=== PATIENT | male | born 1945 | race Caucasian/White ===

== ENCOUNTER 2017-04-29 10:59 | Observation (INO) | payer OTHER ==
[2017-04-29] VITALS (8 sets, daily range): BP systolic 128–166; BP diastolic 71–88; PULSE 55–60; RESP 18; TEMP 96–98; O2SAT 97–100
[~2017-04-29] VITALS: Ht 182.9 cm; Wt 103.8 kg
[~2017-04-29 10:59] MED LIST: ASPI1TAB7 PO; CARDITONE PO; CHOLEAST PO; CO Q200C PO; ELDES PO; GARL500C2 PO; GLUCTAB6 PO; HYDR12.56 PO; NATURAL THYROID PO
[2017-04-29] MEDS ORDERED: ASPI-516 CHEW (11:33)
[2017-04-29] MEDS ORDERED: MELA5CAP3 PO (11:33)
[2017-04-29] MEDS ORDERED: NATU65TA PO (11:33)
[2017-04-29] MEDS ORDERED: BIFLEX (11:33)
[2017-04-29] MEDS ORDERED: COQ-100C5 PO (11:33)
[2017-04-29] MEDS ORDERED: HYDR12.57 PO (11:33)
[2017-04-29] MEDS ORDERED: MCTOIL PO (11:33)
[2017-04-29] MEDS ORDERED: SAWCAP2 PO (11:33)
[2017-04-29] MEDS ORDERED: CHRO400T5 PO (11:33)
[2017-04-29] MEDS ORDERED: CARDITONE (11:33)
--- NOTE | 2017-04-29 11:45 | PD ---
HPI Chief Complaint: Chest Pain Time Seen by Provider: 11:22 Travel History International Travel<30 days: No Contact w/Intl Traveler<30days: No Traveled to known affect area: No History of Present Illness HPI 71-year-old male complains of chest pain. Patient states that he had constant chest pain for the past month. Patient states that the pain is across the anterior chest wall pressure. Patient denies any pain radiation. Patient has history of chronic neck pain and does not move. Patient states that the pain occasionally radiates to the left arm. Patient denies any coughing congestion fever chills. Patient denies any nausea or diaphoresis with chest pain. Patient states that the pain is worse with strenuous exertion. Patient denies any history of CAD. Patient has history hypertension. Patient states that his patient has been taking [id number] medication for blood pressure. Patient is on HCTZ. Patient denies history of diabetes, hyperlipidemia. Patient stopped smoking 40 years ago. Patient has family history of heart disease. Patient was seen by [place] physician and Dr. De Leon for chest pain. Patient states that he had an EKG done in the office. Patient was advised to have a stress test. Patient awaiting for stress test. PFSH Past Medical History Arthritis: Yes Cancer: No Cardiovascular Problems: No High Cholesterol: Yes Diabetes: No Endocrine: Yes Genitourinary: No Hepatitis: No Hiatal Hernia: No Hypertension: Yes Immune Disorder: No Musculoskeletal: Yes (ARTHRITIS) Neurologic: No Psychiatric: No Respiratory: Yes (ASTHMA) Thyroid Disease: Yes Influenza Vaccination: Yes Past Surgical History AICD: No Joint Replacement: No Oral Surgery: Yes (T & A) Pacemaker: No Tonsillectomy: Yes Social History Alcohol Use: No Tobacco Use: No Substance Use: No Allergies-Medications (Allergen,Severity, Reaction): Coded Allergies: No Known Allergies (Verified Adverse Reaction, Unknown, 04/29/17) Reported Meds & Prescriptions Reported Meds & Active Scripts Active Reported Aspirin 81 Mg Chew 81 Mg CHEW DAILY Melatonin 5 Mg Capsule 1 Tab PO HS Saw [place] Extract (Saw [place]-Zinc) 160-15 mg Cap 1 Cap PO DAILY [Biflex] Chromium 400 Mcg Tab 1 Mg PO DAILY [Carditone] Coq-10 Tr (Coenzyme Q10 (Ubidecarenone)) 100 Mg Cap 200 Mg PO DAILY Nature-Throid (Thyroid) 65 Mg Tab 65 Mg PO DAILY Mct Oil (Medium Chain Triglycerides) 7.7 Kcal/Ml Oil 1,000 Mg PO DAILY Hydrochlorothiazide 12.5 Mg Cap 12.5 Mg PO DAILY Review of Systems General / Constitutional: No: Fever Eyes: No: Visual changes HENT: No: Headaches Cardiovascular: Positive: Chest Pain or Discomfort Respiratory: No: Shortness of Breath Gastrointestinal: No: Abdominal Pain Genitourinary: No: Dysuria Musculoskeletal: No: Pain Skin: No Rash Neurologic: No: Weakness Psychiatric: No: Depression Endocrine: No: Polydipsia Hematologic/Lymphatic: No: Easy Bruising Physical Exam Narrative GENERAL: Well-nourished, well-developed patient. SKIN: Focused skin assessment warm/dry. HEAD: Normocephalic. EYES: No scleral icterus. No injection or drainage. NECK: Supple, trachea midline. No JVD or lymphadenopathy. CARDIOVASCULAR: Regular rate and rhythm without murmurs, gallops, or rubs. RESPIRATORY: Breath sounds equal bilaterally. No accessory muscle use. GASTROINTESTINAL: Abdomen soft, non-tender, nondistended. MUSCULOSKELETAL: No cyanosis, or edema. BACK: Nontender without obvious deformity. No CVA tenderness. Neurologic exam normal. Data Data Last Documented VS Vital Signs Date Time Temp Pulse Resp B/P (MAP) Pulse Ox O2 Delivery O2 Flow Rate FiO2 04/29/17 11:56 97 Room Air 04/29/17 11:16 97.6 58 18 156/79 (104) Orders Orders Electrocardiogram (04/29/17 11:33) Complete Blood Count With Diff (04/29/17 11:33) Comprehensive Metabolic Panel (04/29/17 11:33) Creatine Kinase (Cpk) (04/29/17 11:33) Troponin I (04/29/17 11:33) Prothrombin Time / Inr (Pt) (04/29/17 11:33) Act Partial Throm Time (Ptt) (04/29/17 11:33) Chest, Single Ap (04/29/17 11:33) Iv Access Insert/Monitor (04/29/17 11:33) Ecg Monitoring (04/29/17 11:33) Oximetry (04/29/17 11:33) Admit Order (Ed Use Only) (04/29/17 12:28) Labs Laboratory Tests Test 04/29/17 11:50 White Blood Count 6.1 TH/MM3 Red Blood Count 5.26 MIL/MM3 Hemoglobin 15.2 GM/DL Hematocrit 44.7 % Mean Corpuscular Volume 85.1 FL Mean Corpuscular Hemoglobin 28.9 PG Mean Corpuscular Hemoglobin Concent 33.9 % Red Cell Distribution Width 13.0 % Platelet Count 279 TH/MM3 Mean Platelet Volume 7.3 FL Neutrophils (%) (Auto) 61.8 % Lymphocytes (%) (Auto) 26.2 % Monocytes (%) (Auto) 8.3 % Eosinophils (%) (Auto) 3.0 % Basophils (%) (Auto) 0.7 % Neutrophils # (Auto) 3.8 TH/MM3 Lymphocytes # (Auto) 1.6 TH/MM3 Monocytes # (Auto) 0.5 TH/MM3 Eosinophils # (Auto) 0.2 TH/MM3 Basophils # (Auto) 0.0 TH/MM3 CBC Comment DIFF FINAL Differential Comment Prothrombin Time 10.2 SEC Prothromb Time International Ratio 1.0 RATIO Activated Partial Thromboplast Time 28.4 SEC Blood Urea Nitrogen 15 MG/DL Creatinine 0.85 MG/DL Random Glucose 85 MG/DL Total Protein 7.2 GM/DL Albumin 3.6 GM/DL Calcium Level 8.2 MG/DL Alkaline Phosphatase 78 U/L Aspartate Amino Transf (AST/SGOT) 13 U/L Alanine Aminotransferase (ALT/SGPT) 20 U/L Total Bilirubin 0.5 MG/DL Sodium Level 138 MEQ/L Potassium Level 4.0 MEQ/L Chloride Level 105 MEQ/L Carbon Dioxide Level 27.9 MEQ/L Anion Gap 5 MEQ/L Estimat Glomerular Filtration Rate 89 ML/MIN Total Creatine Kinase 66 U/L Troponin I LESS THAN 0.02 NG/ML [facility] Medical Decision Making Medical Screen Exam Complete: Yes Emergency Medical Condition: Yes Interpretation(s) EKG shows sinus bradycardia, rate 56, with nonspecific ST-T wave change. 12:18 PM. Chest x-ray shows no acute consolidation. CBC within normal limits. Cardiac enzymes are normal. Differential Diagnosis Differential diagnosis including musculoskeletal, angina, CO, PE, pneumothorax. Narrative Course 71-year-old male with chest pain. Chest pain has been constant for the past month and worse with strenuous exertion. Patient will be admitted to the chest pain center. Diagnosis Primary Impression: Chest pain Qualified Codes: R07.9 - Chest pain, unspecified Admitting Information Admitting Physician Requests: Observation Hari Velazquez MD Apr 29, 2017 11:45
[2017-04-29 12:01] LABS: AUTOMATED NEUTROPHIL # 3.8 TH/MM3 (1.8-7.7); BASOPHIL % 0.7 % (0.0-2.0); EOSINOPHIL # 0.2 TH/MM3 (0-0.4); HEMATOCRIT 44.7 % (39.0-51.0); HEMOGLOBIN 15.2 GM/DL (13.0-17.0); LYMPH % 26.2 % (9.0-44.0); LYMPHOCYTE # 1.6 TH/MM3 (1.0-4.8); MEAN CELL VOLUME 85.1 FL (80.0-100.0); MEAN CORPUSCULAR HEMOGLOBIN 28.9 PG (27.0-34.0); MEAN CORPUSCULAR HGB CONC 33.9 % (32.0-36.0); MEAN PLATELET VOLUME 7.3 FL (7.0-11.0); MONO % 8.3 % (0.0-8.0); MONOCYTE # 0.5 TH/MM3 (0-0.9); NEUT % 61.8 % (16.0-70.0); PLATELET COUNT 279 TH/MM3 (150-450); RED BLOOD COUNT 5.26 MIL/MM3 (4.50-5.90); WHITE BLOOD COUNT 6.1 TH/MM3 (4.0-11.0)
[2017-04-29 12:05] LABS: CHLORIDE 105 MEQ/L (98-107); SODIUM (NA) 138 MEQ/L (136-145)
[2017-04-29 12:08] LABS: ALBUMIN 3.6 GM/DL (3.4-5.0); BICARBONATE 27.9 MEQ/L (21.0-32.0); CALCIUM 8.2 MG/DL (8.5-10.1)
--- NOTE | 2017-04-29 12:08 | RADRPT ---
EXAM DATE/TIME: 04/29/2017 11:42 [facility] COMPARISON: No previous studies available for comparison. INDICATIONS : Chest pain MEDICAL HISTORY : Hypertension. Hypercholesterolemia. Asthma SURGICAL HISTORY : None. ENCOUNTER: Initial ACUITY: 1 day PAIN SCORE: 10 LOCATION: Bilateral chest FINDINGS: A single view of the chest demonstrates the lungs to be symmetrically aerated without evidence of mas s, infiltrate or effusion. The cardiomediastinal contours are unremarkable. Osseous structures are intact. CONCLUSION: No acute disease. Ron Hernandez MD on April 29, 2017 at 12:06 Board Certified Radiologist. This report was verified electronically.
[2017-04-29 12:09] LABS: BLOOD UREA NITROGEN 15 MG/DL (7-18); GLUCOSE,RANDOM 85 MG/DL (74-106)
[2017-04-29 12:11] LABS: PROTHROMBIN TIME - PATIENT 10.2 SEC (9.8-11.6)
[2017-04-29 12:12] LABS: ALT (GPT) 20 U/L (12-78); AST (GOT) 13 U/L (15-37); CREATININE 0.85 MG/DL (0.60-1.30); GLOMERULAR FILTRATION RATE 89 ML/MIN (>89)
[2017-04-29 12:13] LABS: TOTAL BILIRUBIN ADULT 0.5 MG/DL (0.2-1.0); TOTAL PROTEIN 7.2 GM/DL (6.4-8.2)
[2017-04-29 12:14] LABS: ALKALINE PHOSPHATASE 78 U/L (45-117)
[2017-04-29 12:16] LABS: TROPONIN I LESS THAN 0.02 NG/ML (0.02-0.05)
[2017-04-29] MEDS ORDERED: REGADENOSON INJ 0.4 MG/5 ML SYR IV ONE (12:31)
[2017-04-29] MEDS ORDERED: SODIUM CHLOR 0.9% 1000 ML INJ 1,000 ML IV SCH ×2 (12:34→12:45)
[2017-04-29] MEDS ORDERED: ACETAMINOPHEN 500 MG CPLT PO PRN (12:45)
[2017-04-29] MEDS ORDERED: NITROGLYCERIN 0.4 MG SL 25 TABS/BTL SL PRN (12:45)
[2017-04-29] MEDS ORDERED: SODIUM CHLORIDE 0.9% FLUSH 10 ML FLUSH IV FLUSH PRN ×2 (12:45)
[2017-04-29] MEDS ORDERED: ONDANSETRON HCL 4 MG/2 ML VIAL IV PUSH PRN ×2 (12:45)
[2017-04-29] MEDS ORDERED: MORPHINE SULFATE 4 MG/ML INJ IV PUSH PRN ×2 (12:45)
[2017-04-29] MEDS ORDERED: ENOXAPARIN SODIUM 40 MG/0.4 ML SYRINGE SQ SCH (14:00)
--- NOTE | 2017-04-29 14:38 | HHI.HP ---
[facility] Service [facility] Primary Care Physician Aayush De Leon D.O. Admission Diagnosis Chest pain Diagnoses: (1) Chest pain Diagnosis: Principal Chief Complaint: Chest discomfort Travel History International Travel<30 Days: No Contact w/Intl Traveler <30 Da: No Traveled to Known Affected Are: No History of Present Illness This is a 71-year-old male with known history of hypertension who presented to the hospital because of chest discomfort. Patient states that over the last month he has been experiencing left anterior chest pain that radiates into his neck and left arm. He states that it is intermittent lasting for at least one hour if not longer. States that the pain is a 3/10 on a pain scale and is nonexertional. He denies any nausea, vomiting, shortness of breath , dyspnea, diaphoresis, lightheadedness, dizziness. Patient states that he went to the [place] for evaluation and they did an EKG indicating that it was abnormal. They were setting him up to have a stress test. However because the patient continued to have the pain he came to the emergency department for evaluation. Patient had workup done in emergency department which is unremarkable. ER physician recommended the patient be observed in the chest pain center. Review of Systems Cardiovascular: COMPLAINS OF: Chest pain Except as stated in HPI: all other systems reviewed are Neg Past Family Social History Past Medical History Hypertension Past Surgical History Lipoma removed from left lower abdomen Reported Medications Reported Meds & Active Scripts Active Reported Aspirin 81 Mg Chew 81 Mg CHEW DAILY Melatonin 5 Mg Capsule 1 Tab PO HS Saw [place] Extract (Saw [place]-Zinc) 160-15 mg Cap 1 Cap PO DAILY [Biflex] Chromium 400 Mcg Tab 1 Mg PO DAILY [Carditone] Coq-10 Tr (Coenzyme Q10 (Ubidecarenone)) 100 Mg Cap 200 Mg PO DAILY Nature-Throid (Thyroid) 65 Mg Tab 65 Mg PO DAILY Mct Oil (Medium Chain Triglycerides) 7.7 Kcal/Ml Oil 1,000 Mg PO DAILY Hydrochlorothiazide 12.5 Mg Cap 12.5 Mg PO DAILY Allergies: Coded Allergies: No Known Allergies (Verified Allergy, Unknown, 04/29/17) Family History Reviewed and family all lives to [facility]. Mother is still alive at age 97. His grandfather was 89 when he from a myocardial infarction. Social History Patient quit smoking 45 years ago. Drinks alcohol occasionally. Denies any illicit drugs Physical Exam Vital Signs Vital Signs Date Time Temp Pulse Resp B/P (MAP) Pulse Ox O2 Delivery O2 Flow Rate FiO2 04/29/17 14:22 96.7 55 18 166/80 (108) 98 04/29/17 13:59 04/29/17 13:00 56 18 147/88 (107) 100 Room Air 04/29/17 11:56 97 Room Air 04/29/17 11:16 97.6 58 18 156/79 (104) 98 Physical Exam GENERAL: Well-developed, well-nourished, in no acute distress. alert and orientated HEENT: Head is normocephalic without any lesions or masses noted. Facial features are symmetric. Eyes: Pupils equal round reactive to light. Extraocular muscles are intact. Conjunctivae were clear. Oropharyngeal: Pharynx without any erythema edema. Tongue is midline without deviation. Buccal mucosa is moist without any masses or lesions NECK: Supple without any masses. Trachea midline no deviation. No JVD, no bruits are appreciated CARDIAC: Regular rhythm, regular rate. S1/S2 are heard. No murmurs gallops or rubs. LUNGS: Clear to auscultation bilaterally. No wheeze, rhonchi or rales. No use of accessory muscles on inspiration or expiration. ABDOMEN: Soft, nontender. Nondistended. Bowel sounds heard in all 4 quadrants. No organomegaly or masses. Negative rebound, negative guarding EXTREMITIES: No edema, pulses are equal bilaterally. No cyanosis or clubbing NEUROLOGY: Mood and affect appear appropriate. Cranial nerves II through XII grossly intact. Muscle strength 5/5 in upper and lower extremities bilaterally. Deep tendon reflexes are 2+ in upper and lower extremities bilaterally. Laboratory Laboratory Tests Test 04/29/17 11:50 White Blood Count 6.1 Red Blood Count 5.26 Hemoglobin 15.2 Hematocrit 44.7 Mean Corpuscular Volume 85.1 Mean Corpuscular Hemoglobin 28.9 Mean Corpuscular Hemoglobin Concent 33.9 Red Cell Distribution Width 13.0 Platelet Count 279 Mean Platelet Volume 7.3 Neutrophils (%) (Auto) 61.8 Lymphocytes (%) (Auto) 26.2 Monocytes (%) (Auto) 8.3 Eosinophils (%) (Auto) 3.0 Basophils (%) (Auto) 0.7 Neutrophils # (Auto) 3.8 Lymphocytes # (Auto) 1.6 Monocytes # (Auto) 0.5 Eosinophils # (Auto) 0.2 Basophils # (Auto) 0.0 CBC Comment DIFF FINAL Differential Comment Prothrombin Time 10.2 Prothromb Time International Ratio 1.0 Activated Partial Thromboplast Time 28.4 Blood Urea Nitrogen 15 Creatinine 0.85 Random Glucose 85 Total Protein 7.2 Albumin 3.6 Calcium Level 8.2 Alkaline Phosphatase 78 Aspartate Amino Transf (AST/SGOT) 13 Alanine Aminotransferase (ALT/SGPT) 20 Total Bilirubin 0.5 Sodium Level 138 Potassium Level 4.0 Chloride Level 105 Carbon Dioxide Level 27.9 Anion Gap 5 Estimat Glomerular Filtration Rate 89 Total Creatine Kinase 66 Troponin I LESS THAN 0.02 Result Diagram: 04/29/17 1150 04/29/17 1150 Imaging Last Impressions Chest X-Ray 04/29/17 1133 Signed Impressions: Service Date/Time: Saturday, April 29, 2017 11:42 - CONCLUSION: No acute disease. Ron Hernandez MD Caprini VTE Risk Assessment Caprini VTE Risk Assessment: Mod/High Risk (score >= 2) Caprini Risk Assessment Model Point Value = 1 Point Value = 2 Point Value = 3 Point Value = 5 Age 41-60 Minor surgery BMI > 25 kg/m2 Swollen legs Varicose veins or History of unexplained or recurrent spontaneous Oral contraceptives or hormone replacement Sepsis (< 1 month) Serious lung disease, including pneumonia (< 1 month) Abnormal pulmonary function Acute myocardial infarction Congestive heart failure (< 1 month) History of inflammatory bowel disease Medical patient at bed rest Age 61-74 Arthroscopic surgery Major open surgery (> 45 min) Laparoscopic surgery (> 45 min) Malignancy Confined to bed (> 72 hours) Immobilizing plaster cast Central venous access Age >= 75 History of VTE Family history of VTE Factor V Leiden Prothrombin [id number] Lupus anticoagulant Anticardiolipin antibodies Elevated serum homocysteine Heparin-induced thrombocytopenia Other congenital or acquired thrombophilia Stroke (< 1 month) Elective arthroplasty Hip, pelvis, or leg fracture Acute spinal cord injury (< 1 month) Prophylaxis Regimen Total Risk Factor Score Risk Level Prophylaxis Regimen 0-1 Low Early ambulation 2 Moderate Order ONE of the following: *Sequential Compression Device (SCD) *Heparin 5000 units SQ BID 3-4 Higher Order ONE of the following medications: *Heparin 5000 units SQ TID *Enoxaparin/Lovenox 40 mg SQ daily (WT < 150 kg, CrCl > 30 mL/min) *Enoxaparin/Lovenox 30 mg SQ daily (WT < 150 kg, CrCl > 10-29 mL/min) *Enoxaparin/Lovenox 30 mg SQ BID (WT < 150 kg, CrCl > 30 mL/min) AND/OR *Sequential Compression Device (SCD) 5 or more Highest Order ONE of the following medications: *Heparin 5000 units SQ TID (Preferred with Epidurals) *Enoxaparin/Lovenox 40 mg SQ daily (WT < 150 kg, CrCl > 30 mL/min) *Enoxaparin/Lovenox 30 mg SQ daily (WT < 150 kg, CrCl > 10-29 mL/min) *Enoxaparin/Lovenox 30 mg SQ BID (WT < 150 kg, CrCl > 30 mL/min) AND *Sequential Compression Device (SCD) Assessment and Plan Assessment and Plan Chest pain, atypical Patient with risk factors to include age, male, hypertension, history of tobacco use, family history of heart disease Patient had been ruled out for acute coronary event with serial cardiac enzymes which are negative Serial EKGs are reviewed by myself indicate sinus bradycardia with without changes. Myocardial perfusion study was performed and indicated no stress-induced ischemia, low risk Patient continued on aspirin, nitroglycerin as needed, morphine for pain control, oxygen as needed DVT prevention Subcutaneous heparin Discharge disposition Discharge home in stable condition Activity: Ad neal. Diet: Healthy heart diet Medication per medication reconciliation Follow-up with primary medical doctor in 1 week Problem Qualifiers (1) Chest pain: Qualified Codes: R07.9 - Chest pain, unspecified Hesham Mcpherson Apr 29, 2017 14:38
[2017-04-29 15:49] LABS: TROPONIN I LESS THAN 0.02 NG/ML (0.02-0.05)
--- NOTE | 2017-04-29 17:42 | TR ---
Date Performed: 04/29/2017 Time Performed: 17:24:58 DOCTOR: Ivelisse Galvin DRUG LIST: CLINICAL HISTORY: REASON FOR TEST: Chest pain REASON FOR ENDING: OBSERVATION: CONCLUSION: Lexiscan stress test was performed under standard four minute protocol. Radionuclid e was injected one minute prior to ending the test. No electrocardiographic abormalities were present to suggest ischemia. Nuclear imaging and interpretation are pending. COMMENTS:
--- NOTE | 2017-04-29 18:29 | RADRPT ---
EXAM DATE/TIME: 04/29/2017 16:56 [facility] COMPARISON: No previous studies available for comparison. INDICATIONS : Susbternal chest pain radiating to left arm. Angina. DOSE: 35 mCi Tc99m Myoview at stress. 11 mCi Tc99m Myoview at rest. 0.4 mg Lexiscan STRESS SYMPTOMS: Dyspnea and head pressure. EJECTION FRACTION: 55% MEDICAL HISTORY : Hypertension. SURGICAL HISTORY : Lipoma removed. ENCOUNTER: Initial ACUITY: 1 day PAIN SCALE: 5/10 LOCATION: Substernal chest TECHNIQUE: The patient underwent pharmacologic stress with infusion of prescribed dose. Continuous ECG tracing was monitored during stress. Gated SPECT imaging was performed after stress and conventional SPECT i maging was performed at rest. The examination was performed on a SPECT/CT scanner, both attenuation and non-corrected datasets were reviewed. FINDINGS: DISTRIBUTION: The maximum perfused segment at stress is in the anterior wall. PERFUSION STUDY: The pattern of perfusion at stress is within normal limits. GATED STUDY: There is intact wall motion and thickening without hypokinetic or dyskinetic segments. CONCLUSION: Within normal limits. No perceptible stress-induced ischemia. Normal left ventricular wall motion/eje ction fraction. RISK CATEGORY: Low Seth Singleton MD on April 29, 2017 at 18:27 Board Certified Radiologist. This report was verified electronically.
--- NOTE | 2017-04-29 18:32 | HHI.DCPOC ---
Discharge Care Plan Diagnosis: (1) Chest pain Goals to Promote Your Health * To prevent worsening of your condition and complications * To maintain your health at the optimal level Directions to Meet Your Goals Take your medications as prescribed Follow your dietary instruction Follow activity as directed Keep your appointments as scheduled Take your immunizations and boosters as scheduled If your symptoms worsen call your PCP, if no PCP go to Urgent Care Center or Emergency Room Smoking is Dangerous to Your Health. Avoid second hand smoke Call the 24-hour hour crisis hotline for domestic abuse at Hesham Mcpherson Apr 29, 2017 18:32
[2017-04-29] MEDS ORDERED: SODIUM CHLORIDE 0.9% FLUSH 10 ML FLUSH IV FLUSH SCH ×2 (21:00)
[2017-04-30] MEDS ORDERED: ASPIRIN 325 MG TAB PO SCH (09:00)
--- NOTE | 2017-04-30 17:47 | EKG ---
Date Performed: 04/29/2017 Time Performed: 11:06:49 PTAGE: 71 years EKG: SINUS BRADYCARDIA POOR INITIAL ANTERIOR FORCES, CANNOT EXCLUDE SEPTAL MYOCARDIAL INFARCTION OF UNDETERMINED AGE Since PREVIOUS TRACING , no significant change noted PREVIOUS TRACING DOCTOR: Connor Wood Interpretating Date/Time 04/30/2017 17:46:07
--- NOTE | 2017-04-30 17:49 | EKG ---
Date Performed: 04/29/2017 Time Performed: 15:03:42 PTAGE: 71 years EKG: SINUS BRADYCARDIA POOR INITIAL ANTERIOR FORCES V1 AND V2, CANNOT EXCLUDE SEPTAL [place] OF UNDET ERMINED AGE Since PREVIOUS TRACING , no significant change noted PREVIOUS TRACIN06/19/2014 07.09 DOCTOR: Connor Wood Interpretating Date/Time 04/30/2017 17:47:40
== END 2017-04-29 19:42 | disposition home or self-care (01) ==
LOC: PHED 10:59 → PHEDA 12:30 → PH3A 14:04
PROVIDERS: ADMIT Hospitalist; ATTEND Hospitalist
DX: R07.89 Other chest pain (principal); I10 Essential (primary) hypertension; I20.9 Angina pectoris, unspecified; R00.1 Bradycardia, unspecified; M79.602 Pain in left arm; M54.2 Cervicalgia; G89.29 Other chronic pain; E78.00 Pure hypercholesterolemia, unspecified; J45.909 Unspecified asthma, uncomplicated; E07.9 Disorder of thyroid, unspecified; M19.90 Unspecified osteoarthritis, unspecified site; Z79.899 Other long term (current) drug therapy; Z79.82 Long term (current) use of aspirin; Z87.891 Personal history of nicotine dependence; Z82.49 Family history of ischemic heart disease and other diseases of the circulatory system
CPT/HCPCS: 71045; 78452; 80053; 82550; 84484; 85025; 85610; 85730; 93005; 93017; 96360; 99285; A9502; G0378; J2785; J7030